=== PATIENT | female | born 1990 | race Caucasian/White ===

== ENCOUNTER 2023-04-07 12:38 | Outpatient (CLI) | payer MEDICAID, SELFPAY ==
--- NOTE | 2023-04-07 12:48 | USCV_ITS ---
Radha Markham Age: 33 Gender: F : 1990 Exam Date: 04/07/2023 12:57 Ordering Phys: Elena Mccray SOLAR PROJECT COORDINATION SPECIALIST SOLAR PROJECT COORDINATION SPECIALIST Technologist: Nina Villanueva [place] [facility] [place]: ABEL WORSENING IN LAST 2 MONTHS BP: / HR: 86 Rhythm: Sinus Technical Quality: Adequate MEASUREMENTS (Male / Female) Normal Values 2D ECHO LV Diastolic Diameter PLAX 3.6 cm 4.2 - 5.9 / 3.9 - 5.3 cm LV Systolic Diameter PLAX 1.1 cm LV Chamber Size 2.3 cm IVS Diastolic Thickness 0.8 cm 0.6 - 1.0 / 0.6 - 0.9 cm IVS Systolic Thickness 1.0 cm LVPW Diastolic Thickness 0.6 cm 0.6 - 1.0 / 0.6 - 0.9 cm LVPW Systolic Thickness 1.3 cm RV Chamber Size 2.2 cm LVOT Diameter 2.0 cm LV Ejection Fraction 2D Teich 95.3 % LV Ejection Fraction MOD 2C 59.7 % LV Ejection Fraction 2C AL 60.1 % LA Diameter 2.2 cm LA Width 2.5 cm LA Height 2.1 cm RA Width 2.1 cm RA Height 3.3 cm Aorta at Sinotubular Diameter 2.9 cm IVC Diameter 0.9 cm M-MODE Aortic Annulus Diameter 2.9 cm LA Ao Ratio MM 1.0 MV E Point Septal Separation 0.4 cm DOPPLER AV Peak Velocity 102.0 cm/s LVOT Peak Velocity 100.0 cm/s AV Area Cont Eq vti 2.9 cm squared AV Area Cont Eq pk 3.2 cm squared MV Area PHT 5.8 cm squared Mitral E to A Ratio 1.5 MV E' Velocity 58.0 cm/s Mitral E to MV E' Ratio 6.7 Mitral E to LV E' Lateral Ratio 6.2 Mitral E to LV E' Septal Ratio 7.5 TR Peak Velocity 183.3 cm/s TR Peak Gradient 13.4 mmHg TR Mean Velocity 157.9 cm/s TR Mean Gradient 10.4 mmHg TR Velocity Time Integral 46.2 cm TV Peak E Velocity 71.0 cm/s Right Atrial Pressure 3.0 mmHg Pulmonary Artery Systolic Pressu 16.4 mmHg RV Acceleration Time 0.2 s RV Ejection Time 0.3 s RV AcT/ET 0.5 FINDINGS Left Ventricle Left ventricle is normal in size. LV systolic function is normal with EF of 55-60%. No regional wall motion abnormalities are seen. Right Ventricle Normal in size and function Right Atrium Normal in size Left Atrium Normal in size Mitral Valve Structurally normal mitral valve. Trace mitral regurgitation. Aortic Valve Structurally normal aortic valve.. No significant stenosis or regurgitation seen. Tricuspid Valve Mild tricuspid regurgitation. Pulmonary artery systolic pressure is normal. Pulmonic Valve Grossly normal Pericardium Normal Aorta Normal in size IVC Appears to be normal CONCLUSIONS LV systolic function is normal with EF of 55-60%. Trace mitral regurgitation Mild tricuspid regurgitation. No comparison studies are available Christoph Bonilla MD (Electronically Signed) Final Date: 10 April 2023 15:53 S
[2023-04-07 13:45] VITALS: PULSE 80; RESP 18; O2SAT 98
[2023-04-07] MEDS: albuterol 2.5 mg/3 mL Neb INHALATION (13:45)
[2023-04-07 13:48] VITALS: PULSE 77
== END 2023-04-07 12:39 | disposition home or self-care (01) ==
PROVIDERS: PCP Nurse Practitioner Family; Visit Provider Nurse Practitioner Family
DX: R06.09 Other forms of dyspnea (principal); I08.1 Rheumatic disorders of both mitral and tricuspid valves
CPT/HCPCS: 93306; 94060; J7613

== ENCOUNTER 2023-04-14 13:46 | Outpatient (CLI) | payer MEDICAID, SELFPAY ==
[2023-04-14 14:44] LABS: Erythrocyte Sedimentation Rate 4 mm/hr (0-15)
--- NOTE | 2023-04-14 15:39 | XR_ITS ---
WS: [email or web address] XR wrist RT 2V [id number] REASON FOR EXAM: WRIST PAIN, RIGHT FINDINGS: No fracture or focal bone lesion. Radiocarpal and intercarpal joint spaces are intact and well preserved. No soft tissue abnormality. XR/XR wrist RT 2V [id number] IMPRESSION: No significant abnormality.
--- NOTE | 2023-04-14 15:40 | XR_ITS ---
WS: [email or web address] XR cervical spine 3V* [id number] REASON FOR EXAM: NECK PAIN FINDINGS: Normal cervical spine curvature. Normal odontoid and vertebral bodies. Intervertebral disc spaces are intact and well preserved. Normal facet joints. No significant listhesis. XR/XR cervical spine 3V* [id number] IMPRESSION: No significant abnormality.
--- NOTE | 2023-04-14 15:40 | XR_ITS ---
WS: [email or web address] XR thoracic spine 2V [id number] REASON FOR EXAM: BACK PAIN FINDINGS: Normal thoracic spine curvatures. Normal thoracic Intervertebral disc spaces are intact and well preserved. XR/XR thoracic spine 2V [id number] IMPRESSION: No significant abnormality.
[2023-04-16 11:13] LABS: Cyclic Citrullinated Peptide <16 UNITS
[2023-04-19 17:05] LABS: Anti-Double Strand DNA AB 1 IU/mL; Jo-1 Antibody <1.0 NEG AI (<1.0 NEG); SM/RNP Antibodies <1.0 NEG AI (<1.0 NEG); SS-B/LA IGG <1.0 NEG AI (<1.0 NEG); Scleroderma Ab(Scl-70) Ab <1.0 NEG AI (<1.0 NEG); Ss-A/Ro Igg <1.0 NEG AI (<1.0 NEG)
== END 2023-04-14 13:47 | disposition home or self-care (01) ==
LOC: LAB 13:50
PROVIDERS: PCP Nurse Practitioner Family; Visit Provider Nurse Practitioner Family
DX: M54.2 Cervicalgia (principal); M54.6 Pain in thoracic spine; M25.531 Pain in right wrist; Z01.89 Encounter for other specified special examinations
CPT/HCPCS: 36415; 72040; 72070; 73100; 85651; 86140; 86200; 86225; 86235; 86431

== ENCOUNTER 2023-04-15 13:06 | Emergency (ER) | payer MEDICAID, SELFPAY ==
[2023-04-15 13:08] VITALS: BP 119/83; PULSE 92; RESP 20; TEMP 37.1; O2SAT 99; BMI 22.4
--- NOTE | 2023-04-15 13:13 | XRR_ITS ---
PROCEDURE INFORMATION: Exam: XR Chest Exam date and time: 04/15/2023 1:41 PM Age: 33 years old Clinical indication: Pain; Other: Chest discomfort / anxiety; Additional info: Dyspnea/cough TECHNIQUE: Imaging protocol: Radiologic exam of the chest. Views: 1 view. COMPARISON: CR XR cervical spine 3V* [id number] 04/14/2023 3:43 PM FINDINGS: Lungs: Unremarkable. No consolidation. Pleural spaces: Unremarkable. No pleural effusion. No pneumothorax. Heart/Mediastinum: Unremarkable. No cardiomegaly. Bones/joints: Unremarkable. XR/XR chest 1V portable [id number] IMPRESSION: No acute findings.
[2023-04-15 13:16] VITALS: BP 119/83; PULSE 91; O2SAT 99
--- NOTE | 2023-04-15 13:21 | ECG_ITS ---
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 Measurements Intervals [place] Rate: 83 P: 55 DE: 143 QRS: 51 QRSD: 84 T: 39 QT: 338 QTc: 397 Interpretive Statements SINUS RHYTHM No previous ECG available for comparison Electronically Signed On 04-15-2023 16:34:17 CDT by Corina Healy M.D. [email or web address]
--- NOTE | 2023-04-15 13:41 | ED_ITS ---
HPI - Weakness General: Chief complaint: Weakness Stated complaint: CHEST DISCOMFORT/ ANXIETY Time Seen by Provider: 04/15/23 13:12 Source: patient Mode of arrival: EMS History of Present Illness: 33-year-old female presents emergency room with complaints of 1 week of intermittent chest discomfort and tenderness worse when she palpates along the anterior chest wall central part of her chest. She has no associated shortness of breath she admits to some anxiety component with that as well. Last couple of days she has been very nauseous felt like she would vomit denies any medication melena hematemesis cough nemesis no shortness of breath no fever sweats or chills MD Complaint: generalized weakness Onset (ago): week(s) Duration: intermittent Relieving factors: none Exacerbating factors: none Associated symptoms: Denies chest pain, chills, confusion, melena, decreased appetite, diaphoresis, dysuria, easy bruising, fever(s), headache(s), myalgias, nausea, rash, short of breath, syncope or vomiting Review of Systems Const: Denies: fever(s), chills or diaphoresis ENMT: Denies: throat pain, ear or mastoid pain, nasal discharge or nasal congestion Card: Reports: palpitations; Denies: chest pain, edema or syncope Resp: Denies: dyspnea, productive cough or non-productive cough GI: Denies: abdominal pain, nausea, vomiting or melena : Denies: dysuria, urinary frequency or urinary urgency Skin/Breast: Denies: rash or pruritus Neuro: Denies: headache(s) or confusion Derik/Lymph: Denies: easy bruising Physical Exam Const: GENERAL APPEARANCE: cooperative and comfortable ORIENTATION/CONSCIOUSNESS: Yes awake, Yes oriented to person, Yes oriented to place and Yes oriented to time HENMT: COMMON NORMALS: normocephalic, atraumatic and hearing grossly normal bilaterally HEAD & SCALP: normocephalic and atraumatic Resp: COMMON NORMALS: normal respiratory effort, No retractions, No use of accessory muscles and clear to auscultation bilaterally AUSCULTATION: clear to auscultation bilaterally Cardio: COMMON NORMALS: regular rate, regular rhythm and No murmurs present (Cardio) RATE: regular rate RHYTHM: regular rhythm GI: COMMON NORMALS: Soft to palpation and No hepatosplenomegaly present AUSCULTATION: Yes normoactive bowel sounds PALPATION: Yes Soft to palpation, No Tenderness to palpation present (GI), No Guarding due to palpation present (GI) and Yes No hepatosplenomegaly present Extremity: COMMON NORMALS: normal to inspection, capillary refill normal, no clubbing, cyanosis or edema, no calf tenderness and no pedal edema Neuro: SENSORIUM/ORIENTATION: Yes oriented to person, Yes oriented to place and Yes oriented to time Skin: COMMON NORMALS: no rashes or lesions noted GENERAL SKIN EXAM: no rashes or lesions noted Course Vital Signs: Vital signs: Vital Signs Temperature 98.8 F 04/15/23 13:08 Pulse Rate 92 04/15/23 13:46 Respiratory Rate 20 H 04/15/23 13:08 Blood Pressure 108/75 04/15/23 13:46 Pulse Oximetry 100 04/15/23 13:46 Oxygen Delivery Me thod Room Air 04/15/23 13:46 MDM - Weakness Medical Decision Making Labs and imaging reviewed the patient EKG shows no acute changes troponin is negative despite having symptoms for a week. Laboratory tests unremarkable. She does have reproducible discomfort palpation on the anterior chest wall. She had told the nurse states that some may be anxiety issues. Suspect that may play a role in it she does have some musculoskeletal symptoms as well can use hydroxyzine and/or diclofenac as needed for symptoms follow-up with primary care. Medical Records I reviewed the patient's medical records. Lab Data I reviewed the patient's lab results. 04/15/23 13:35 04/15/23 13:35 Radiology Impressions Chest X-Ray 04/15/23 13:13 IMPRESSION: No acute findings. Laboratory Results WBC 10.2 10^3/uL (4.0-10.0) H 04/15/23 13:35 RBC 4.90 10^6/uL (4.1-5.3) 04/15/23 13:35 Hgb 13.8 g/dL (11.5-15.3) 04/15/23 13:35 Hct 42.5 % (37.0-47.0) 04/15/23 13:35 MCV 86.7 fl (81-99) 04/15/23 13:35 MCH 28.2 pg (28.0-34.0) 04/15/23 13:35 MCHC 32.5 g/dL (30.0-36.0) 04/15/23 13:35 RDW 12.2 % (12.1-15.1) 04/15/23 13:35 Plt Count 338 10^3/cmm (130-400) 04/15/23 13:35 MPV 9.8 fL (7.4-10.4) 04/15/23 13:35 Neut % (Auto) 59.7 % 04/15/23 13:35 Lymph % (Auto) 30.3 % 04/15/23 13:35 Door % (Auto) 6.1 % 04/15/23 13:35 Eos % (Auto) 2.4 % 04/15/23 13:35 Baso % (Auto) 1.2 % 04/15/23 13:35 Neut # (Auto) 6.10 10^3/uL (1.8-7.7) 04/15/23 13:35 Lymph # (Auto) 3.1 10^3/uL (0.8-4.8) 04/15/23 13:35 Door # (Auto) 0.6 10^3/uL (0.2-0.9) 04/15/23 13:35 Eos # (Auto) 0.3 10^3/uL (0.0-0.8) 04/15/23 13:35 Baso # (Auto) 0.1 10^3/uL (0.0-0.1) 04/15/23 13:35 Nucleated RBC % (auto) 0 % 04/15/23 13:35 Nucleated RBCs # 0.0 /100WBC 04/15/23 13:35 Sodium 136 mmol/L (136-145) 04/15/23 13:35 Potassium 3.7 mmol/L (3.5-5.1) 04/15/23 13:35 Chloride 104 mmol/L (98-107) 04/15/23 13:35 Carbon Dioxide 22 mmol/L (22-29) 04/15/23 13:35 Anion Gap 13.7 (5-19) 04/15/23 13:35 BUN 11 mg/dL (6-20) 04/15/23 13:35 Creatinine 0.6 mg/dL (0.5-0.9) 04/15/23 13:35 GFR Calculation 114.4 mL/min (90-130) 04/15/23 13:35 Glucose 66 mg/dL (65-115) 04/15/23 13:35 Calculated Osmolality 280 mOsm/kg (285-295) L 04/15/23 13:35 Calcium 9.4 mg/dL (8.5-10.5) 04/15/23 13:35 Troponin T Baseline 6 ng/L (0-10) 04/15/23 13:35 Discharge Plan Discharge Patient Disposition: Home Clinical Impression: Acute chest wall pain, Anxiety Condition: Stable Prescriptions: New hydroxyzine HCl 25 mg tablet 25 mg PO Q8H PRN (Reason: anxiety) Qty: 10 0RF diclofenac sodium 75 mg tablet,delayed release (DR/EC) 75 mg PO Q12H PRN (Reason: pain) Qty: 20 0RF Discharge Orders: Discharge ED (Routine); Ordered 04/15/23 Ordered By: [place] Francisco Referrals: Elena Mccray FNP [Primary Care Provider] - Discharge Diet: Usual diet Discharge Activity: Increase activity as tolerated Patient Instructions: Opioid Safety, Pain Management Coding Level of Care Code ED Business Development Agent for Harrietg Lizabeth
[2023-04-15 13:46] VITALS: BP 108/75; PULSE 92; O2SAT 100
[2023-04-15] MEDS: sodium chloride 0.9% 1,000 ML 999 ML IV (13:52)
[2023-04-15 14:07] LABS: Basophils # 0.1 10^3/uL (0.0-0.1); Basophils % 1.2 %; Eosinophils # 0.3 10^3/uL (0.0-0.8); Eosinophils % 2.4 %; Hematocrit 42.5 % (37.0-47.0); Hemoglobin 13.8 g/dL (11.5-15.3); Lymphocytes # 3.1 10^3/uL (0.8-4.8); Lymphocytes % 30.3 %; Mean Corpuscular HGB Conc 32.5 g/dL (30.0-36.0); Mean Corpuscular Hemoglobin 28.2 pg (28.0-34.0); Mean Corpuscular Volume 86.7 fl (81-99); Mean Platelet Volume 9.8 fL (7.4-10.4); Monocytes # 0.6 10^3/uL (0.2-0.9); Monocytes % 6.1 %; Neutrophils % 59.7 %; Nucleated Red Blood Cells % 0 %; Platelet Count 338 10^3/cmm (130-400); Red Cell Distribution Width 12.2 % (12.1-15.1); White Blood Count 10.2 10^3/uL (4.0-10.0)
[2023-04-15 14:24] LABS: Anion Gap 13.7 (5-19); Blood Urea Nitrogen 11 mg/dL (6-20); Calcium 9.4 mg/dL (8.5-10.5); Carbon Dioxide 22 mmol/L (22-29); Chloride 104 mmol/L (98-107); Glomerular Filtration Rate 114.4 mL/min (90-130); Glucose 66 mg/dL (65-115); Osmolality Calculated 280 mOsm/kg (285-295); Potassium 3.7 mmol/L (3.5-5.1); Sodium 136 mmol/L (136-145)
[2023-04-15 15:19] LABS: Troponin(5th) Baseline 6 ng/L (0-10)
[2023-04-15 15:50] VITALS: BP 105/83; PULSE 90; O2SAT 99
[2023-04-15 16:15] LABS: Troponin 5 2HR Delta 0 ABS# (0-10)
== END 2023-04-15 15:51 | disposition home or self-care (01) ==
PROVIDERS: Emergency Provider Family Medicine; PCP Nurse Practitioner Family
DX: R07.89 Other chest pain (principal); F41.9 Anxiety disorder, unspecified
CPT/HCPCS: 71045; 80048; 84484; 85025; 93005; 96360; 96361; 99285; J7030

== ENCOUNTER → 2023-06-10 14:47 | Outpatient (BNVA) | payer MEDICAID, SELFPAY | PROVIDERS: PCP Nurse Practitioner Family; Referring Provider Nurse Practitioner Family; Visit Provider Student in an Organized Health Care Education/Training Program | DX: M65.4 Radial styloid tenosynovitis [de Quervain]; M85.641 Other cyst of bone, right hand; M67.431 Ganglion, right wrist | CPT/HCPCS: 73110 ==

== ENCOUNTER → 2023-06-29 10:51 | Outpatient (BNVA) | payer MEDICAID, SELFPAY | PROVIDERS: PCP Nurse Practitioner Family; Visit Provider Nurse Practitioner | DX: F41.1 Generalized anxiety disorder (principal) | CPT/HCPCS: 84443 ==

== ENCOUNTER 2023-07-08 13:34 | Outpatient (CLI) | payer MEDICAID, SELFPAY ==
--- NOTE | 2023-07-08 13:45 | MR_ITS ---
WS: [email or web address] MRI RIGHT WRIST CONTRAST. COMPARISON: Radiographs 06/10/2023 Multiplanar, multisequence imaging is performed without contrast. History: Lateral RIGHT wrist pain. There is a very small amount of increased marrow signal involving the lateral most trapezium. Closely associated with the prominent protrusion of the trapezium is very slight intermediate signal in the abductor pollicis longus tendon. Also closely associated with the extensor pollicis brevis tendon but no definite signal changes within the extensor tendon. There is no fluid within the tendon sheath. T here is only mild thickening and intermediate signal within the tendons themselves. The tendons are b eing slightly displaced by the prominent trapezium. Otherwise no soft tissue abnormalities are identi fied in the lateral wrist. No tenosynovitis. Scapholunate ligament and interval are normal. There is a small cyst in the distal scaphoid measuring 5 mm. Normal carpal rows. TFCC appears normal. There is a very small of soft tissue edema noted along the dorsal surface of the wrist at the level o f the proximal capitate. Signal is external to the extensor digitorum tendons. Increased signal is cl ose associated with the capitohamate ligament. IMPRESSION: 1. Small amount of marrow edema in the lateral most trapezium. This portion of the trapezium is close ly associated with the abductor pollicis longus tendon with slight increased signal. Mild tendinosis. No tear identified. 2. Very small amount of increased T2 signal within the soft tissues along the dorsal hand closely ass ociated with the capitohamate ligament. 3. Small cyst within the distal scaphoid.
== END 2023-07-08 13:35 | disposition home or self-care (01) ==
LOC: RAD 13:34
PROVIDERS: PCP Nurse Practitioner Family; Visit Provider Student in an Organized Health Care Education/Training Program
DX: M65.4 Radial styloid tenosynovitis [de Quervain] (principal)
CPT/HCPCS: 73221

== ENCOUNTER → 2023-07-15 13:21 | Outpatient (BNVA) | payer MEDICAID, SELFPAY | PROVIDERS: PCP Nurse Practitioner Family; Referring Provider Nurse Practitioner; Visit Provider Orthopaedic Surgery | DX: M54.2 Cervicalgia (principal) | CPT/HCPCS: 72050 ==

== ENCOUNTER 2023-07-28 06:00 | Outpatient (RCR) | payer MEDICAID, SELFPAY | END 2023-07-31 23:59 | disposition home or self-care (01) | LOC: APT 06:00 | PROVIDERS: Visit Provider Orthopaedic Surgery | DX: M54.2 Cervicalgia (principal); G89.29 Other chronic pain | CPT/HCPCS: 97161 ==

== ENCOUNTER 2023-08-01 06:00 | Outpatient (RCR) | payer MEDICAID, SELFPAY | END 2023-08-31 23:59 | disposition home or self-care (01) | LOC: APT 06:00 | PROVIDERS: PCP Nurse Practitioner; Visit Provider Orthopaedic Surgery | DX: M54.2 Cervicalgia (principal); G89.29 Other chronic pain | CPT/HCPCS: 97110; 97530 ==

== ENCOUNTER 2023-09-01 06:00 | Outpatient (RCR) | payer MEDICAID, SELFPAY | END 2023-09-30 23:59 | disposition home or self-care (01) | LOC: APT 06:00 | PROVIDERS: PCP Nurse Practitioner; Visit Provider Orthopaedic Surgery | DX: M54.2 Cervicalgia (principal); G89.29 Other chronic pain | CPT/HCPCS: 97110; 97530 ==

== ENCOUNTER → 2023-09-09 14:55 | Outpatient (BNVA) | payer MEDICAID, SELFPAY | PROVIDERS: PCP Nurse Practitioner; Referring Provider Orthopaedic Surgery; Visit Provider Student in an Organized Health Care Education/Training Program | DX: M25.312 Other instability, left shoulder; M25.311 Other instability, right shoulder; M25.511 Pain in right shoulder; M25.512 Pain in left shoulder | CPT/HCPCS: 73030 ==

== ENCOUNTER → 2023-11-30 16:05 | Outpatient (BNVA) | payer MEDICAID, SELFPAY | PROVIDERS: PCP Nurse Practitioner; Visit Provider Nurse Practitioner | DX: R53.83 Other fatigue (principal); E55.9 Vitamin D deficiency, unspecified; M79.10 Myalgia, unspecified site; F41.1 Generalized anxiety disorder; Z79.899 Other long term (current) drug therapy | CPT/HCPCS: 80053; 80061; 82306; 82607; 84443; 85025 ==

== ENCOUNTER 2023-12-17 14:02 | Outpatient (CLI) | payer MEDICAID, SELFPAY ==
--- NOTE | 2023-12-17 14:30 | MR_ITS ---
WS: [email or web address] MRI CERVICAL SPINE NONCONTRAST TECHNIQUE: Sagittal T1, T2 and STIR imaging. Axial T2, gradient, and fiesta imaging. CLINICAL INFORMATION: neck pain COMPARISON: None. FINDINGS: Straightening the normal cervical lordosis. Cord signal is normal. C2-C3: Normal. C3-C4: Mild facet arthropathy. Spinal canal and foramen are patent. C4-C5: No significant disc bulging. Mild facet arthropathy. Spinal canal and foramen are patent. C5-C6: No significant disc bulging. Mild facet arthropathy. Mild LEFT and no significant RIGHT forami nal narrowing. Spinal canal is patent. C6-C7: Mild disc osteophytic ridging. Mild LEFT and no significant RIGHT foraminal narrowing. Mild fa cet arthropathy. Spinal canal is patent. C7-T1: Normal. Visualized brain stem structures: Normal. Prevertebral soft tissues: Normal. IMPRESSION: 1. Straightening the normal cervical lordosis. Cord signal is normal. 2. No evidence of cord contusion or myelomalacia. 3. Mild LEFT C5-C6 and LEFT C6-7 bony foraminal narrowing. 4. Mild facet arthropathy C4-C5 C5-C6 and C6-C7.
== END 2023-12-17 14:03 | disposition home or self-care (01) ==
LOC: RAD 14:03
PROVIDERS: PCP Nurse Practitioner; Visit Provider Orthopaedic Surgery
DX: M48.02 Spinal stenosis, cervical region (principal); M47.812 Spondylosis without myelopathy or radiculopathy, cervical region
CPT/HCPCS: 72141

== ENCOUNTER → 2023-12-21 16:33 | Outpatient (BNVA) | payer MEDICAID, SELFPAY | PROVIDERS: PCP Nurse Practitioner; Visit Provider Nurse Practitioner | DX: Z12.4 Encounter for screening for malignant neoplasm of cervix (principal) | CPT/HCPCS: 88175 ==

== ENCOUNTER → 2024-07-20 15:30 | Outpatient (BNVA) | payer MEDICAID, SELFPAY | PROVIDERS: PCP Nurse Practitioner; Visit Provider Nurse Practitioner | DX: E55.9 Vitamin D deficiency, unspecified (principal); F41.1 Generalized anxiety disorder; M79.10 Myalgia, unspecified site; J30.89 Other allergic rhinitis | CPT/HCPCS: 80053; 80061; 82306; 84443; 85025 ==

== ENCOUNTER 2024-09-07 14:56 | Outpatient (CLI) | payer MEDICAID, SELFPAY ==
--- NOTE | 2024-09-07 15:15 | MR_ITS ---
WS: [email or web address] MRI BRAIN WITHOUT CONTRAST HISTORY: A59.09 - Other urogenital trichomoniasis COMPARISON: 07/22/2012 TECHNIQUE: Diffusion imaging, multiplanar T1, T2 and FLAIR imaging obtained. No evidence for acute infarct or hemorrhage. Silverio-white matter differentiation is normal. Normal tyrone ocampal formations. No remote or acute infarcts are volume loss. Ventricles and extra-axial spaces are normal. Slightly low-lying cerebellar tonsils as described on the prior study. No Chiari malformation and no obstruction. Dural venous sinuses and [place] of [place] demonstrate no abnormality on this unenhanced studies. Paranasal sinuses: Small amount of fluid in the maxillary sinuses. Mastoid air cells: Normal. Calvarium and scalp: Intact. MR/MR head wo con* [id number] IMPRESSION: 1. Unremarkable noncontrast MRI brain. 2. No prior or acute infarcts.
== END 2024-09-07 14:57 | disposition home or self-care (01) ==
PROVIDERS: PCP Nurse Practitioner; Visit Provider Psychiatry & Neurology Neurology
DX: A59.09 Other urogenital trichomoniasis (principal)
CPT/HCPCS: 70551

== ENCOUNTER → 2024-11-09 09:13 | Outpatient (BNVA) | payer MEDICAID, SELFPAY | PROVIDERS: PCP Nurse Practitioner; Visit Provider Nurse Practitioner | DX: R11.0 Nausea (principal); E55.9 Vitamin D deficiency, unspecified | CPT/HCPCS: 82306; 86003; 86008 ==

== ENCOUNTER 2024-12-30 06:30 | Outpatient (RCR) | payer MEDICAID, SELFPAY | END 2025-01-29 23:59 | disposition home or self-care (01) | LOC: APT 06:30 | PROVIDERS: Visit Provider Student in an Organized Health Care Education/Training Program | DX: G89.4 Chronic pain syndrome (principal) | CPT/HCPCS: 97161 ==

== ENCOUNTER → 2025-03-07 11:08 | Outpatient (BNVA) | payer MEDICAID, SELFPAY | PROVIDERS: PCP Nurse Practitioner; Visit Provider Nurse Practitioner | DX: E55.9 Vitamin D deficiency, unspecified (principal); E78.1 Pure hyperglyceridemia | CPT/HCPCS: 80053; 80061; 82306 ==